=== PATIENT | female | born 1965 | race Two or more races ===

== ENCOUNTER 2020-12-21 12:39 | Inpatient (IN) | payer MEDICAID, OTHER ==
[~2020-12-21] VITALS: Ht 154.9 cm; Wt 117.0 kg
--- NOTE | 2020-12-21 13:10 | NUR ---
PATIENT WHEELED BACK FROM TRIAGE WITH CHIEF C/O "I'VE BEEN DRINKING A LITTLE TOO MUCH." PER PATIENT SHE HAS BEEN DRINKING "2 CANS OF BUDLIGHT FOR A FEW DAYS." UPON ASSESSMENT PATIENT IS JAUNDICED, ACCOMPANIED BY DAUGHTER, POORNIMA, SWELLING IN ABD, VSS, SIDE RAILS UP X2, CALL LIGHT WITHIN REACH.
[2020-12-21] MEDS ORDERED: SODIUM CHLORIDE FLUSH 10ML SYR IVF ONE (13:30)
--- NOTE | 2020-12-21 13:41 | NUR ---
20 GAUGE IV STARTED RIGHT AC, BLOOD COLLECTED AND GIVEN TO [employer] CONSULTANT.
[2020-12-21 13:59] LABS: MEAN CORPUSCULAR HEMOGLOBIN 32.9 pg (27.0-34.8); MEAN CORPUSCULAR HGB CONC 34.8 g/dL (32.4-35.8); MEAN PLATELET VOLUME 7.8 fL (7.4-10.4); PLATELET COUNT 111 x10^3/uL (130-400); RED BLOOD COUNT 3.89 x10^6/uL (3.82-5.3)
[2020-12-21 14:02] LABS: ALANINE AMINOTRANSFERASE 62 U/L (12-78); ALBUMIN 1.5 g/dL (3.4-5.0); ANION GAP 13 mmol/L (5-15); CALCIUM 7.4 mg/dL (8.5-10.1); CHLORIDE 77 mmol/L (98-107)
[2020-12-21 14:09] LABS: ALKALINE PHOSPHATASE 295 U/L (45-117)
[2020-12-21 14:13] LABS: CREATININE 0.81 mg/dL (0.55-1.02); TOTAL PROTEIN 7.7 g/dL (6.4-8.2)
[2020-12-21 14:19] LABS: BILIRUBIN,TOTAL 24.3 mg/dL (0.2-1.0)
--- NOTE | 2020-12-21 14:20 | NUR ---
CRITICAL SODIUM 107 AND BILIRUBIN 24.3 REPORTED TO MD GUERRA AND PRIMARY RN DOUGLAS.
[2020-12-21 14:22] LABS: MD YES
[2020-12-21 14:26] LABS: BAND#(MANUAL) 2.79 x10^3/uL; BANDS%(MANUAL) 15 % (0-7); LYMPH#(MANUAL) 0.93 x10^3/uL (1-3.4); LYMPHS% (MANUAL) 5 % (22-44); METAMYELOCYTES# (MANUAL) 0.56 x10^3/uL (0-0); METAMYELOCYTES% (MANUAL) 3 % (0-1); MONOS% (MANUAL) 7 % (2-9); MYELOCYTES# (MANUAL) 0.19 x10^3/uL (0-0); MYELOCYTES% (MANUAL) 1 % (0-0); SEG#(MANUAL) 12.83 x10^3/uL (1.8-6.8); SEGS% (MANUAL) 69 % (42-75)
[2020-12-21 14:27] LABS: ANISOCYTOSIS 1+; POLYCHROMASIA 1+
[2020-12-21 14:29] LABS: <PLATELET ESTIMATE> DECREASED; <PLT MORPHOLOGY> NORMAL PLT MORPH
[2020-12-21] MEDS ORDERED: SODIUM CHLORIDE 0.9% 1,000 ML IV ONE (14:30)
--- NOTE | 2020-12-21 14:31 | NUR ---
PATIENT LAYING IN GURNEY, POORNIMA, VSS, DAUGHTER AT BEDSIDE, NS HUNG AT 250 mLS/HR, SIDE RAILS UP X2, CALL LIGHT WITHIN REACH.
--- NOTE | 2020-12-21 14:48 | NUR ---
SM AT BEDSIDE FOR ADMISSION EVALUATION.
--- NOTE | 2020-12-21 14:58 | NUR ---
SPOKE WITH DR. 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
[2020-12-21] MEDS ORDERED: SODIUM CHLORIDE FLUSH 10ML SYR IVF PRN (15:00)
--- NOTE | 2020-12-21 15:00 | NUR ---
REPORT FROM BEBA GRANT. PT READY FOR TRANSPORT, AT BEDSIDE
--- NOTE | 2020-12-21 15:08 | NUR ---
US IN ROOM
[2020-12-21 15:21] LABS: INTERNATIONAL NORMALIZED RATIO 1.74 (0.93-1.1); PROTHROMBIN TIME 18.4 Seconds (9.6-11.5)
[2020-12-21] MEDS ORDERED: POTASSIUM CHLORIDE 20 MEQ TAB.ER.PRT PO ONE (15:30)
[2020-12-21] MEDS ORDERED: OXYcodone IR 5MG TABLET PO PRN (15:30)
[2020-12-21] MEDS ORDERED: PHENOBARBITAL ETOH DETOX PER PHARMACY MC PRN (15:30)
[2020-12-21] MEDS ORDERED: ONDANSETRON 2MG/ML, 2ML IVPush PRN (15:30)
[2020-12-21] MEDS ORDERED: hydrALAzine 20 MG/ML, 1ML IVPush PRN (15:30)
[2020-12-21] MEDS ORDERED: SODIUM CHLORIDE 0.9% IV ONE (16:00)
[2020-12-21] MEDS ORDERED: PHENOBARBITAL SODIUM IV ONE (16:00)
[2020-12-21] MEDS ORDERED: SODIUM CHLORIDE 3% 500 ML IV PRN ×2 (16:00→20:04)
[2020-12-21] MEDS: CEFTRIAXONE PMX 1GM/50ML 50 ML IV SCH (16:17)
[2020-12-21] MEDS ORDERED: HYDR12.517 PO (16:24)
[2020-12-21] MEDS ORDERED: LOSA25TA25 PO (16:24)
[2020-12-21] MEDS ORDERED: LORazepam 0.5MG TABLET PO PRN ×3 (16:30)
[2020-12-21] MEDS ORDERED: DIAZEPAM 10 MG TABLET PO SCH ×2 (16:30)
[2020-12-21] MEDS ORDERED: LORazepam 1MG TABLET PO PRN ×9 (16:30)
[2020-12-21] MEDS ORDERED: LORazepam 2 MG/ML, 1ML IV PRN ×9 (16:30)
[2020-12-21] MEDS ORDERED: DIAZEPAM 5 MG TABLET PO SCH ×2 (16:30)
[2020-12-21] MEDS: POTASSIUM CHLORIDE 20 MEQ, MAGNESIUM SULFATE 1 GM, THIAMINE 200 MG, FOLIC ACID 1 MG in ... IV SCH (16:33)
[2020-12-21] MEDS: METRONIDAZOLE PMX 500MG/100ML 100 ML IV SCH (16:51)
[2020-12-21] MEDS: DIAZEPAM 10 MG TABLET PO SCH (16:53)
[2020-12-21 17:10] VITALS: BP 137/83
[2020-12-21] MEDS ORDERED: POTASSIUM PHOSPHATE 44 MEQ in SODIUM CHLORIDE 0.9% 500 ML IV ONE (17:30)
[2020-12-21 17:51] LABS: MICROSCOPIC INDICATED
[2020-12-21] MEDS: LACTULOSE 20 GM/30 ML UDC PO SCH (20:07)
[2020-12-21] MEDS ORDERED: MELATONIN 5 MG TABLET PO PRN (21:00)
[2020-12-22] MEDS: DIAZEPAM 10 MG TABLET PO SCH ×2 (00:27→03:35)
[2020-12-22] MEDS: METRONIDAZOLE PMX 500MG/100ML 100 ML IV SCH ×3 (01:49→17:31)
[2020-12-22 04:30] LABS: MEAN CORPUSCULAR HEMOGLOBIN 32.8 pg (27.0-34.8); MEAN CORPUSCULAR HGB CONC 35.2 g/dL (32.4-35.8); MEAN PLATELET VOLUME 7.7 fL (7.4-10.4); PLATELET COUNT 91 x10^3/uL (130-400); RED CELL DISTRIBUTION WIDTH 23.5 % (9.6-15.2)
[2020-12-22 04:44] LABS: ALANINE AMINOTRANSFERASE 57 U/L (12-78); ALBUMIN 1.2 g/dL (3.4-5.0); ANION GAP 8 mmol/L (5-15); CALCIUM 6.9 mg/dL (8.5-10.1); CHLORIDE 89 mmol/L (98-107)
[2020-12-22 04:46] LABS: ALKALINE PHOSPHATASE 235 U/L (45-117)
[2020-12-22 04:48] LABS: CREATININE 0.81 mg/dL (0.55-1.02)
[2020-12-22 04:49] LABS: TOTAL PROTEIN 6.5 g/dL (6.4-8.2)
[2020-12-22 04:50] LABS: BILIRUBIN,TOTAL 22.1 mg/dL (0.2-1.0)
[2020-12-22 05:07] LABS: MD YES
[2020-12-22 05:09] LABS: BANDS%(MANUAL) 3 % (0-7); BASOS#(MANUAL) 0.17 x10^3/uL (0-0.1); BASOS% (MANUAL) 1 % (0-1); EOS#(MANUAL) 0.34 x10^3/uL (0.0-0.4); EOS% (MANUAL) 2 % (1-7); LYMPH#(MANUAL) 0.67 x10^3/uL (1-3.4); LYMPHS% (MANUAL) 4 % (22-44); METAMYELOCYTES# (MANUAL) 0.34 x10^3/uL (0-0); METAMYELOCYTES% (MANUAL) 2 % (0-1); MONOS% (MANUAL) 3 % (2-9); MYELOCYTES% (MANUAL) 3 % (0-0); SEG#(MANUAL) 13.78 x10^3/uL (1.8-6.8); SEGS% (MANUAL) 82 % (42-75)
[2020-12-22 05:10] LABS: ANISOCYTOSIS 1+
[2020-12-22 05:11] LABS: <PLATELET ESTIMATE> DECREASED; <PLT MORPHOLOGY> NORMAL PLT MORPH; CRENATED 1+; POLYCHROMASIA 1+
[2020-12-22] MEDS ORDERED: CALCIUM GLUCONATE 9.2 MEQ in SODIUM CHLORIDE 0.9% 100 ML IV ONE (06:30)
[2020-12-22] MEDS ORDERED: PANTOPRAZOLE 40 MG IV IVPush SCH (07:30)
[2020-12-22] MEDS: LACTULOSE 20 GM/30 ML UDC PO SCH ×2 (08:32→20:34)
[2020-12-22] MEDS ORDERED: THIAMINE 200 MG in SODIUM CHLORIDE 0.9% 50 ML IV SCH (09:00)
[2020-12-22] MEDS: PHYTONADIONE 5 MG TABLET PO SCH (11:17)
[2020-12-22] MEDS: CEFTRIAXONE PMX 1GM/50ML 50 ML IV SCH (15:31)
[2020-12-22] MEDS ORDERED: SODIUM CHLORIDE 3% 500 ML IV PRN (17:00)
[2020-12-22] MEDS ORDERED: DIAZEPAM 5 MG TABLET PO SCH (17:00)
[2020-12-22] MEDS: POTASSIUM CHLORIDE 20 MEQ, MAGNESIUM SULFATE 1 GM, THIAMINE 200 MG, FOLIC ACID 1 MG in ... IV SCH (17:27)
[2020-12-23] MEDS: METRONIDAZOLE PMX 500MG/100ML 100 ML IV SCH ×3 (02:00→19:12)
[2020-12-23 05:30] LABS: MEAN CORPUSCULAR HEMOGLOBIN 32.6 pg (27.0-34.8); MEAN CORPUSCULAR HGB CONC 34.3 g/dL (32.4-35.8); MEAN PLATELET VOLUME 7.8 fL (7.4-10.4); PLATELET COUNT 126 x10^3/uL (130-400); RED BLOOD COUNT 3.54 x10^6/uL (3.82-5.3); RED CELL DISTRIBUTION WIDTH 23.6 % (9.6-15.2)
[2020-12-23] MEDS: PANTOPRAZOLE 40MG TABLET PO SCH (05:32)
[2020-12-23 05:39] LABS: ALBUMIN 1.3 g/dL (3.4-5.0); ANION GAP 8 mmol/L (5-15); CALCIUM 7.6 mg/dL (8.5-10.1); CHLORIDE 100 mmol/L (98-107); INTERNATIONAL NORMALIZED RATIO 1.88 (0.93-1.1); PROTHROMBIN TIME 19.9 Seconds (9.6-11.5)
[2020-12-23 05:42] LABS: ALANINE AMINOTRANSFERASE 63 U/L (12-78); ALKALINE PHOSPHATASE 249 U/L (45-117)
[2020-12-23 05:44] LABS: CREATININE 0.99 mg/dL (0.55-1.02); TOTAL PROTEIN 6.5 g/dL (6.4-8.2)
[2020-12-23 05:47] LABS: BILIRUBIN,TOTAL 22.4 mg/dL (0.2-1.0)
[2020-12-23] MEDS ORDERED: POTASSIUM PHOSPHATE 22 MEQ in SODIUM CHLORIDE 0.9% 500 ML IV ONE (06:30)
[2020-12-23 06:46] LABS: MD YES
[2020-12-23 06:48] LABS: ANISOCYTOSIS 1+; BAND#(MANUAL) 0.71 x10^3/uL; BANDS%(MANUAL) 3 % (0-7); LYMPH#(MANUAL) 0.24 x10^3/uL (1-3.4); LYMPHS% (MANUAL) 1 % (22-44); METAMYELOCYTES# (MANUAL) 0.47 x10^3/uL (0-0); METAMYELOCYTES% (MANUAL) 2 % (0-1); MONOS#(MANUAL) 0.47 x10^3/uL (0.3-2.7); MONOS% (MANUAL) 2 % (2-9); MYELOCYTES# (MANUAL) 0.24 x10^3/uL (0-0); MYELOCYTES% (MANUAL) 1 % (0-0); POLYCHROMASIA 1+; SEG#(MANUAL) 21.48 x10^3/uL (1.8-6.8); SEGS% (MANUAL) 91 % (42-75); TARGET CELLS 1+
[2020-12-23 06:49] LABS: <PLATELET ESTIMATE> DECREASED; <PLT MORPHOLOGY> NORMAL PLT MORPH
[2020-12-23] MEDS: PHYTONADIONE 5 MG TABLET PO SCH (08:14)
[2020-12-23] MEDS: THIAMINE 100MG TABLET PO SCH (08:14)
[2020-12-23] MEDS: LACTULOSE 20 GM/30 ML UDC PO SCH ×2 (08:14→20:52)
[2020-12-23] MEDS ORDERED: ALBUTEROL HFA 90 MCG/SPRAY INH PRN (09:00)
[2020-12-23] MEDS ORDERED: FUROSEMIDE 40 MG/4 ML IV ONE (09:00)
[2020-12-23] MEDS ORDERED: POTASSIUM CHLORIDE 20 MEQ TAB.ER.PRT PO ONE ×2 (09:00→15:30)
[2020-12-23 15:22] LABS: ANION GAP 9 mmol/L (5-15); CALCIUM 6.9 mg/dL (8.5-10.1); CHLORIDE 102 mmol/L (98-107)
[2020-12-23] MEDS ORDERED: CALCIUM GLUCONATE 9.2 MEQ in SODIUM CHLORIDE 0.9% 100 ML IV ONE (15:30)
[2020-12-23] MEDS: CEFTRIAXONE PMX 1GM/50ML 50 ML IV SCH (16:36)
[2020-12-23 18:36] VITALS: BP 121/75
[2020-12-24 00:37] VITALS: BP 130/79
[2020-12-24] MEDS: METRONIDAZOLE PMX 500MG/100ML 100 ML IV SCH (03:41)
[2020-12-24 05:07] LABS: MEAN CORPUSCULAR HEMOGLOBIN 33.4 pg (27.0-34.8); MEAN CORPUSCULAR HGB CONC 34.5 g/dL (32.4-35.8); MEAN PLATELET VOLUME 7.2 fL (7.4-10.4); PLATELET COUNT 115 x10^3/uL (130-400); RED BLOOD COUNT 3.42 x10^6/uL (3.82-5.3); RED CELL DISTRIBUTION WIDTH 24.5 % (9.6-15.2)
[2020-12-24 05:17] LABS: ALBUMIN 1.4 g/dL (3.4-5.0); ANION GAP 7 mmol/L (5-15); CALCIUM 7.6 mg/dL (8.5-10.1); CHLORIDE 104 mmol/L (98-107)
[2020-12-24 05:21] LABS: ALANINE AMINOTRANSFERASE 75 U/L (12-78); ALKALINE PHOSPHATASE 252 U/L (45-117)
[2020-12-24 05:24] LABS: BILIRUBIN,TOTAL 22.4 mg/dL (0.2-1.0); TOTAL PROTEIN 6.3 g/dL (6.4-8.2)
[2020-12-24 06:09] LABS: MD YES
[2020-12-24 06:12] LABS: <PLATELET ESTIMATE> DECREASED; <PLT MORPHOLOGY> NORMAL PLT MORPH; ANISOCYTOSIS 1+; BANDS%(MANUAL) 6 % (0-7); LYMPHS% (MANUAL) 1 % (22-44); METAMYELOCYTES% (MANUAL) 1 % (0-1); MONOS% (MANUAL) 2 % (2-9); MYELOCYTES% (MANUAL) 2 % (0-0); POLYCHROMASIA 1+; SEGS% (MANUAL) 88 % (42-75); TARGET CELLS 1+
[2020-12-24] MEDS: PANTOPRAZOLE 40MG TABLET PO SCH (06:17)
[2020-12-24 07:41] VITALS: BP 111/73
[2020-12-24] MEDS ORDERED: FUROSEMIDE 40 MG/4 ML IV ONE (08:00)
[2020-12-24] MEDS ORDERED: POTASSIUM CHLORIDE 20 MEQ TAB.ER.PRT PO ONE (08:00)
[2020-12-24] MEDS: LACTULOSE 20 GM/30 ML UDC PO SCH ×2 (08:11→20:32)
[2020-12-24] MEDS: THIAMINE 100MG TABLET PO SCH (08:11)
[2020-12-24] MEDS: PHYTONADIONE 5 MG TABLET PO SCH (08:11)
[2020-12-24 13:45] VITALS: BP 122/76
[2020-12-24] MEDS: CEFTRIAXONE PMX 1GM/50ML 50 ML IV SCH (15:26)
[2020-12-24 20:00] VITALS: BP 118/76
[2020-12-25 02:00] VITALS: BP 114/71
[2020-12-25 04:53] LABS: MEAN CORPUSCULAR HEMOGLOBIN 33.2 pg (27.0-34.8); MEAN CORPUSCULAR HGB CONC 34.8 g/dL (32.4-35.8); MEAN PLATELET VOLUME 7.4 fL (7.4-10.4); PLATELET COUNT 106 x10^3/uL (130-400); RED BLOOD COUNT 3.37 x10^6/uL (3.82-5.3); RED CELL DISTRIBUTION WIDTH 23.9 % (9.6-15.2)
[2020-12-25 05:04] LABS: ALANINE AMINOTRANSFERASE 87 U/L (12-78); ALBUMIN 1.3 g/dL (3.4-5.0); ANION GAP 9 mmol/L (5-15); CALCIUM 7.4 mg/dL (8.5-10.1); CHLORIDE 106 mmol/L (98-107)
[2020-12-25 05:06] LABS: ALKALINE PHOSPHATASE 235 U/L (45-117)
[2020-12-25 05:07] LABS: CREATININE 1.31 mg/dL (0.55-1.02)
[2020-12-25 05:09] LABS: BILIRUBIN,TOTAL 21.7 mg/dL (0.2-1.0)
[2020-12-25 05:47] LABS: MD YES
[2020-12-25 05:48] LABS: <PLATELET ESTIMATE> DECREASED; <PLT MORPHOLOGY> NORMAL PLT MORPH; ANISOCYTOSIS 1+; BAND#(MANUAL) 0.35 x10^3/uL; BANDS%(MANUAL) 2 % (0-7); LYMPH#(MANUAL) 0.35 x10^3/uL (1-3.4); LYMPHS% (MANUAL) 2 % (22-44); MONOS#(MANUAL) 1.06 x10^3/uL (0.3-2.7); MONOS% (MANUAL) 6 % (2-9); MYELOCYTES# (MANUAL) 0.18 x10^3/uL (0-0); MYELOCYTES% (MANUAL) 1 % (0-0); POLYCHROMASIA 1+; SEG#(MANUAL) 15.75 x10^3/uL (1.8-6.8); SEGS% (MANUAL) 89 % (42-75)
[2020-12-25] MEDS: PANTOPRAZOLE 40MG TABLET PO SCH (05:51)
[2020-12-25 06:52] VITALS: BP 101/65
[2020-12-25] MEDS: POTASSIUM CHLORIDE 20 MEQ TAB.ER.PRT PO SCH ×2 (07:23→16:33)
[2020-12-25] MEDS: PHYTONADIONE 5 MG TABLET PO SCH (07:23)
[2020-12-25] MEDS: LACTULOSE 20 GM/30 ML UDC PO SCH ×2 (07:23→20:21)
[2020-12-25] MEDS: THIAMINE 100MG TABLET PO SCH (07:23)
[2020-12-25 13:21] VITALS: BP 110/73
[2020-12-25] MEDS: CEFTRIAXONE PMX 1GM/50ML 50 ML IV SCH (16:33)
[2020-12-25 19:00] VITALS: BP 125/80
[2020-12-26 01:46] VITALS: BP 110/72
[2020-12-26 05:01] LABS: INTERNATIONAL NORMALIZED RATIO 1.57 (0.93-1.1); PROTHROMBIN TIME 16.6 Seconds (9.6-11.5)
[2020-12-26 05:07] LABS: CHLORIDE 108 mmol/L (98-107)
[2020-12-26 05:17] LABS: ALANINE AMINOTRANSFERASE 107 U/L (12-78); ALBUMIN 1.4 g/dL (3.4-5.0); ALKALINE PHOSPHATASE 235 U/L (45-117); ANION GAP 6 mmol/L (5-15)
[2020-12-26 05:29] LABS: CREATININE 1.32 mg/dL (0.55-1.02); TOTAL PROTEIN 6.2 g/dL (6.4-8.2)
[2020-12-26 05:31] VITALS: BP 132/71
[2020-12-26 05:33] LABS: BILIRUBIN,TOTAL 22.9 mg/dL (0.2-1.0)
[2020-12-26] MEDS: PANTOPRAZOLE 40MG TABLET PO SCH (05:42)
[2020-12-26 06:25] VITALS: BP 123/85
[2020-12-26] MEDS: LACTULOSE 20 GM/30 ML UDC PO SCH ×2 (07:37→20:11)
[2020-12-26] MEDS: THIAMINE 100MG TABLET PO SCH (07:38)
[2020-12-26] MEDS: PHYTONADIONE 5 MG TABLET PO SCH (07:38)
[2020-12-26] MEDS: POTASSIUM CHLORIDE 20 MEQ TAB.ER.PRT PO SCH (07:38)
[2020-12-26 12:15] VITALS: BP 127/84
[2020-12-26] MEDS: CEFTRIAXONE PMX 1GM/50ML 50 ML IV SCH (16:20)
[2020-12-26 19:56] VITALS: BP 120/74
[2020-12-27 01:17] VITALS: BP 124/76
[2020-12-27 04:35] LABS: MEAN CORPUSCULAR HEMOGLOBIN 33.4 pg (27.0-34.8); MEAN CORPUSCULAR HGB CONC 34.1 g/dL (32.4-35.8); MEAN PLATELET VOLUME 7.6 fL (7.4-10.4); PLATELET COUNT 110 x10^3/uL (130-400); RED BLOOD COUNT 3.27 x10^6/uL (3.82-5.3); RED CELL DISTRIBUTION WIDTH 24.5 % (9.6-15.2)
[2020-12-27 04:43] LABS: INTERNATIONAL NORMALIZED RATIO 1.57 (0.93-1.1); PROTHROMBIN TIME 16.7 Seconds (9.6-11.5)
[2020-12-27 04:46] LABS: ALANINE AMINOTRANSFERASE 124 U/L (12-78); ALBUMIN 1.4 g/dL (3.4-5.0); ANION GAP 3 mmol/L (5-15); CALCIUM 7.9 mg/dL (8.5-10.1); CHLORIDE 111 mmol/L (98-107)
[2020-12-27 04:48] LABS: ALKALINE PHOSPHATASE 240 U/L (45-117); CREATININE 1.32 mg/dL (0.55-1.02)
[2020-12-27 04:49] LABS: TOTAL PROTEIN 5.9 g/dL (6.4-8.2)
[2020-12-27 04:50] LABS: BILIRUBIN,TOTAL 22.2 mg/dL (0.2-1.0)
[2020-12-27 05:20] LABS: MD YES
[2020-12-27 05:22] LABS: ANISOCYTOSIS 1+; BAND#(MANUAL) 0.84 x10^3/uL; BANDS%(MANUAL) 4 % (0-7); LYMPH#(MANUAL) 0.63 x10^3/uL (1-3.4); LYMPHS% (MANUAL) 3 % (22-44); MONOS#(MANUAL) 0.42 x10^3/uL (0.3-2.7); MONOS% (MANUAL) 2 % (2-9); SEGS% (MANUAL) 91 % (42-75)
[2020-12-27 05:23] LABS: <PLATELET ESTIMATE> DECREASED; <PLT MORPHOLOGY> NORMAL PLT MORPH; POLYCHROMASIA 1+; TARGET CELLS 1+; TEAR DROPS 1+
[2020-12-27] MEDS: PANTOPRAZOLE 40MG TABLET PO SCH (05:45)
[2020-12-27 07:06] VITALS: BP 121/70
[2020-12-27] MEDS: THIAMINE 100MG TABLET PO SCH (08:12)
[2020-12-27] MEDS: LACTULOSE 20 GM/30 ML UDC PO SCH ×2 (08:12→20:18)
[2020-12-27] MEDS: PHYTONADIONE 5 MG TABLET PO SCH (08:12)
[2020-12-27 13:20] VITALS: BP 114/76
[2020-12-27] MEDS: CEFTRIAXONE PMX 1GM/50ML 50 ML IV SCH (15:58)
[2020-12-27 20:00] VITALS: BP 109/69
[2020-12-28 01:35] VITALS: BP 113/72
[2020-12-28 05:45] LABS: BASOPHILS % (AUTO) 0 % (0-1); EOSINOPHILS % (AUTO) 0 % (1-7); LYMPHOCYTES % (AUTO) 4 % (22-44); MEAN CORPUSCULAR HEMOGLOBIN 33.6 pg (27.0-34.8); MEAN CORPUSCULAR HGB CONC 34.1 g/dL (32.4-35.8); MEAN PLATELET VOLUME 7.9 fL (7.4-10.4); MONOCYTES % (AUTO) 5 % (2-9); NEUTROPHILS % (AUTO) 91 % (42-75); PLATELET COUNT 109 x10^3/uL (130-400); RED CELL DISTRIBUTION WIDTH 25.4 % (9.6-15.2)
[2020-12-28 05:51] LABS: INTERNATIONAL NORMALIZED RATIO 1.53 (0.93-1.1); PROTHROMBIN TIME 16.2 Seconds (9.6-11.5)
[2020-12-28 05:55] LABS: ALBUMIN 1.4 g/dL (3.4-5.0); ANION GAP 6 mmol/L (5-15); CALCIUM 8.2 mg/dL (8.5-10.1); CHLORIDE 109 mmol/L (98-107)
[2020-12-28 05:58] LABS: ALANINE AMINOTRANSFERASE 146 U/L (12-78); ALKALINE PHOSPHATASE 240 U/L (45-117)
[2020-12-28] MEDS: PANTOPRAZOLE 40MG TABLET PO SCH (05:59)
[2020-12-28 06:00] LABS: TOTAL PROTEIN 5.8 g/dL (6.4-8.2)
[2020-12-28 06:02] LABS: BILIRUBIN,TOTAL 21.6 mg/dL (0.2-1.0)
[2020-12-28 06:35] LABS: MD SCAN
[2020-12-28 07:08] VITALS: BP 101/68
[2020-12-28] MEDS: PHYTONADIONE 5 MG TABLET PO SCH (07:57)
[2020-12-28] MEDS: THIAMINE 100MG TABLET PO SCH (07:57)
[2020-12-28] MEDS: LACTULOSE 20 GM/30 ML UDC PO SCH ×2 (07:57→20:01)
[2020-12-28 12:59] VITALS: BP 98/64
[2020-12-28] MEDS: CEFTRIAXONE PMX 1GM/50ML 50 ML IV SCH (15:57)
[2020-12-28 18:19] VITALS: BP 105/66
[2020-12-29 00:23] VITALS: BP 105/63
[2020-12-29 04:47] LABS: MEAN CORPUSCULAR HEMOGLOBIN 33.9 pg (27.0-34.8); MEAN CORPUSCULAR HGB CONC 33.9 g/dL (32.4-35.8); MEAN PLATELET VOLUME 7.8 fL (7.4-10.4); PLATELET COUNT 103 x10^3/uL (130-400); RED BLOOD COUNT 3.23 x10^6/uL (3.82-5.3); RED CELL DISTRIBUTION WIDTH 25.5 % (9.6-15.2)
[2020-12-29 04:59] LABS: ALANINE AMINOTRANSFERASE 170 U/L (12-78); ALBUMIN 1.3 g/dL (3.4-5.0); ANION GAP 8 mmol/L (5-15); CALCIUM 7.7 mg/dL (8.5-10.1); CHLORIDE 109 mmol/L (98-107); INTERNATIONAL NORMALIZED RATIO 1.52 (0.93-1.1); PROTHROMBIN TIME 16.1 Seconds (9.6-11.5)
[2020-12-29 05:02] LABS: ALKALINE PHOSPHATASE 232 U/L (45-117)
[2020-12-29 05:05] LABS: CREATININE 1.51 mg/dL (0.55-1.02); TOTAL PROTEIN 5.5 g/dL (6.4-8.2)
[2020-12-29 05:06] LABS: BILIRUBIN,TOTAL 21.9 mg/dL (0.2-1.0)
[2020-12-29] MEDS: PANTOPRAZOLE 40MG TABLET PO SCH (05:37)
[2020-12-29 05:45] LABS: MD YES
[2020-12-29 05:50] LABS: <PLATELET ESTIMATE> DECREASED; <PLT MORPHOLOGY> NORMAL PLT MORPH; ANISOCYTOSIS 1+; BAND#(MANUAL) 0.65 x10^3/uL; BANDS%(MANUAL) 3 % (0-7); EOS#(MANUAL) 0.44 x10^3/uL (0.0-0.4); EOS% (MANUAL) 2 % (1-7); METAMYELOCYTES# (MANUAL) 0.44 x10^3/uL (0-0); METAMYELOCYTES% (MANUAL) 2 % (0-1); MONOS#(MANUAL) 0.44 x10^3/uL (0.3-2.7); MONOS% (MANUAL) 2 % (2-9); MYELOCYTES# (MANUAL) 0.22 x10^3/uL (0-0); MYELOCYTES% (MANUAL) 1 % (0-0); POLYCHROMASIA 1+; SEG#(MANUAL) 19.62 x10^3/uL (1.8-6.8); SEGS% (MANUAL) 90 % (42-75); TARGET CELLS 1+
[2020-12-29 07:44] VITALS: BP 100/66
[2020-12-29] MEDS: LACTULOSE 20 GM/30 ML UDC PO SCH ×2 (09:18→20:30)
[2020-12-29] MEDS: THIAMINE 100MG TABLET PO SCH (09:18)
[2020-12-29] MEDS: PHYTONADIONE 5 MG TABLET PO SCH (09:18)
[2020-12-29 12:19] VITALS: BP 95/62
[2020-12-29] MEDS: CEFTRIAXONE PMX 1GM/50ML 50 ML IV SCH (16:31)
[2020-12-29 18:20] VITALS: BP 107/67
[2020-12-29 23:56] VITALS: BP 96/63
[2020-12-30] MEDS: PANTOPRAZOLE 40MG TABLET PO SCH (05:48)
[2020-12-30 07:10] VITALS: BP 89/57
[2020-12-30] MEDS: LACTULOSE 20 GM/30 ML UDC PO SCH (09:24)
[2020-12-30] MEDS: PHYTONADIONE 5 MG TABLET PO SCH (09:24)
[2020-12-30] MEDS: THIAMINE 100MG TABLET PO SCH (09:25)
[2020-12-30 12:45] VITALS: BP 85/59
[2020-12-30] MEDS ORDERED: ALBU18HF INH (13:29)
[2020-12-30] MEDS ORDERED: THIA100T67 PO (13:29)
[2020-12-30] MEDS ORDERED: PANT40TA6 PO (13:29)
[2020-12-30] MEDS ORDERED: LACT20SO13 PO (13:29)
[2020-12-30] MEDS ORDERED: POTA20PA25 PO (13:29)
[2020-12-30] MEDS ORDERED: FURO-92 PO (13:29)
[2020-12-30] MEDS ORDERED: FUROSEMIDE 20 MG/2 ML IV ONE (13:30)
[2020-12-30] MEDS ORDERED: LEVO750T6 PO (13:35)
[2020-12-30] MEDS: CEFTRIAXONE PMX 1GM/50ML 50 ML IV SCH (15:55)
== END 2020-12-30 16:50 | disposition home or self-care (01) | DRG 280 ==
LOC: ED 14:30 → EDIP 14:34 → CCU 15:36 → 3N 12-23 15:14
PROVIDERS: ADMIT Hospitalist; ATTEND Internal Medicine
DX: K70.11 Alcoholic hepatitis with ascites (principal); B96.20 Unspecified Escherichia coli [E. coli] as the cause of diseases classified elsewhere; D64.9 Anemia, unspecified; D68.9 Coagulation defect, unspecified; D69.59 Other secondary thrombocytopenia; A41.9 Sepsis, unspecified organism; E66.01 Morbid (severe) obesity due to excess calories; E87.1 Hypo-osmolality and hyponatremia; E87.2 Acidosis; E88.09 Other disorders of plasma-protein metabolism, not elsewhere classified; F10.20 Alcohol dependence, uncomplicated; G47.33 Obstructive sleep apnea (adult) (pediatric); I12.9 Hypertensive chronic kidney disease with stage 1 through stage 4 chronic kidney disease, or unspecified chronic kidney disease; J45.909 Unspecified asthma, uncomplicated; K76.0 Fatty (change of) liver, not elsewhere classified; K76.6 Portal hypertension; K80.20 Calculus of gallbladder without cholecystitis without obstruction; Y90.9 Presence of alcohol in blood, level not specified; K85.90 Acute pancreatitis without necrosis or infection, unspecified; N12 Tubulo-interstitial nephritis, not specified as acute or chronic; N18.30 Chronic kidney disease, stage 3 unspecified; Z83.3 Family history of diabetes mellitus; Z68.42 Body mass index [BMI] 45.0-49.9, adult
CPT/HCPCS: 36415; 74176; 76700; 80048; 80053; 80074; 80320; 81001; 82140; 82784; 82787; 83516; 83605; 83690; 83735; 83930; 83935; 84100; 84145; 84295; 84443; 85025; 85610; 86704; 87040; 87077; 87081; 87086; 87186; 93306; 96365; 99291; G0378; J0610; J0696; J1940; J3411; J3475; J3480; J7509; C9113; G0480; J7030; J7040

== ENCOUNTER 2021-01-02 15:19 | Inpatient (IN) | payer MEDICAID ==
[~2021-01-02] VITALS: Ht 154.9 cm; Wt 128.0 kg
[~2021-01-02 15:19] MED LIST: ALBU18HF INH; FURO-92 PO; HYDR12.517 PO; LACT20SO13 PO; LEVO750T6 PO; LOSA25TA25 PO; PANT40TA6 PO; POTA20PA25 PO; THIA100T67 PO
--- NOTE | 2021-01-02 15:31 | NUR ---
PT BIB [facility]. PT APPEARING LETHARGIC AND DAUGHTER CALLED 911. BP UPON EMS ARRIVAL 50/30. 1L NS GIVEN PRE [facility]. PT STATES THAT SHE HAS BEEN TAKING LASIX AT HOME AND HAS NOT BEEN DRINKING WATER. MD MARIA AT BEDSIDE
[2021-01-02 15:58] LABS: MEAN CORPUSCULAR HGB CONC 33.6 g/dL (32.4-35.8); MEAN PLATELET VOLUME 9.2 fL (7.4-10.4); PLATELET COUNT 86 x10^3/uL (130-400); RED BLOOD COUNT 2.77 x10^6/uL (3.82-5.3); RED CELL DISTRIBUTION WIDTH 26.1 % (9.6-15.2)
[2021-01-02 15:59] LABS: INTERNATIONAL NORMALIZED RATIO 1.82 (0.93-1.1); PROTHROMBIN TIME 19.2 Seconds (9.6-11.5)
[2021-01-02] MEDS ORDERED: SODIUM CHLORIDE 0.9% 1,000ML IVBOLUS ONE ×2 (16:00→16:30)
[2021-01-02] MEDS ORDERED: SODIUM CHLORIDE FLUSH 10ML SYR IVF ONE (16:00)
[2021-01-02 16:01] LABS: ALBUMIN 1.1 g/dL (3.4-5.0); CALCIUM 6.7 mg/dL (8.5-10.1); CHLORIDE 100 mmol/L (98-107)
--- NOTE | 2021-01-02 16:02 | NUR ---
PT STRAIGHT CATHED FOR UA. PT TOLERATED WELL
[2021-01-02 16:09] LABS: ALANINE AMINOTRANSFERASE 191 U/L (12-78); ALKALINE PHOSPHATASE 287 U/L (45-117); ANION GAP 15 mmol/L (5-15)
[2021-01-02 16:12] LABS: MICROSCOPIC INDICATED
[2021-01-02 16:22] LABS: CREATININE 4.87 mg/dL (0.55-1.02)
[2021-01-02 16:23] LABS: TOTAL PROTEIN 4.8 g/dL (6.4-8.2)
[2021-01-02 16:25] LABS: BILIRUBIN,TOTAL 21.5 mg/dL (0.2-1.0)
[2021-01-02 16:43] LABS: MD YES
[2021-01-02 16:45] LABS: BANDS%(MANUAL) 23 % (0-7); EOS#(MANUAL) 0.23 x10^3/uL (0.0-0.4); EOS% (MANUAL) 1 % (1-7); LYMPH#(MANUAL) 0.45 x10^3/uL (1-3.4); LYMPHS% (MANUAL) 2 % (22-44); METAMYELOCYTES# (MANUAL) 0.23 x10^3/uL (0-0); METAMYELOCYTES% (MANUAL) 1 % (0-1); SEGS% (MANUAL) 73 % (42-75)
[2021-01-02 16:46] LABS: ANISOCYTOSIS 1+
[2021-01-02 16:47] LABS: TARGET CELLS 1+
[2021-01-02 16:48] LABS: <PLATELET ESTIMATE> DECREASED; <PLT MORPHOLOGY> NORMAL PLT MORPH
--- NOTE | 2021-01-02 16:49 | NUR ---
PT RESTING COMFORTABLY. DAUGHTER AT BEDSIDE.
[2021-01-02] MEDS ORDERED: PIPERACILLIN/TAZO/PMX 2.25GM 50 ML IVPB ONE (17:00)
[2021-01-02] MEDS ORDERED: SODIUM BICARBONATE 650 MG TABLET PO ONE (18:00)
[2021-01-02] MEDS ORDERED: ALBUMIN HUMAN 25% 100 ML IV ONE (18:00)
[2021-01-02] MEDS: NOREPINEPHRINE 8 MG in SODIUM CHLORIDE 0.9% 242 ML IV PRN ×2 (18:07→23:39)
--- NOTE | 2021-01-02 18:07 | NUR ---
Report from Emerita GRANT Levophed started peripherally after clarification with erp as 70/palp
--- NOTE | 2021-01-02 18:27 | NUR ---
b/p improved to 110/35. Erp made aware. Central line setup complete Senior Electrical Project Manager questioned safety of po midodrine/bicarb as patient quite obtunded-erp reports nephro specifically wants po. will swallow eval then attempt
--- NOTE | 2021-01-02 18:54 | NUR ---
bedside report from june deal. dr womack just finished central line. xray at bedside for placement verification.
--- NOTE | 2021-01-02 18:56 | NUR ---
cxr at bedside. erp confirmed cl placement. levo moved to cl and titrated up to 0.3 Report to horacio watkins
[2021-01-02] MEDS: MIDODRINE 5 MG TABLET PO SCH ×2 (18:59→23:18)
--- NOTE | 2021-01-02 19:16 | NUR ---
per er ryan erazo to use central line
--- NOTE | 2021-01-02 19:24 | NUR ---
pt A+Ox4 and denying any pain at this time
--- NOTE | 2021-01-02 19:30 | NUR ---
pt able to tolerate po medications well
--- NOTE | 2021-01-02 20:00 | NUR ---
dr madden at bedside for assessment
--- NOTE | 2021-01-02 20:50 | NUR ---
pt resting comfortably. no acute distress. daughter at bedside.
[2021-01-02] MEDS ORDERED: OXYcodone IR 5MG TABLET PO PRN (21:00)
[2021-01-02] MEDS ORDERED: ONDANSETRON 2MG/ML, 2ML IVPush PRN (21:00)
[2021-01-02] MEDS ORDERED: PROMETHAZINE 25 MG/ML, 1ML IM PRN (21:00)
[2021-01-02] MEDS: LACTULOSE 10 GM/15 ML UDC PO SCH (21:00)
[2021-01-02] MEDS ORDERED: SODIUM BICARBONATE 8.4% 150 MEQ in DEXTROSE 5% 1,000 ML IV SCH (21:00)
[2021-01-02] MEDS ORDERED: ONDANSETRON ODT 4 MG PO PRN (21:00)
[2021-01-02] MEDS ORDERED: ALBUTEROL HFA 90 MCG/SPRAY INH PRN (21:30)
--- NOTE | 2021-01-02 22:07 | NUR ---
report to june tamayo
[2021-01-02] MEDS: CEFTRIAXONE PMX 2GM/50ML 50 ML IVPB SCH (23:39)
[2021-01-03] VITALS (8 sets, daily range): BP systolic 101–123; BP diastolic 38–63
[2021-01-03] MEDS ORDERED: NOREPINEPHRINE 32 MG in SODIUM CHLORIDE 0.9% 218 ML IV PRN (01:27)
[2021-01-03] MEDS: METRONIDAZOLE PMX 500MG/100ML 100 ML IV SCH ×4 (01:42→21:31)
[2021-01-03 04:11] LABS: MEAN PLATELET VOLUME 8.7 fL (7.4-10.4); PLATELET COUNT 106 x10^3/uL (130-400); RED BLOOD COUNT 2.78 x10^6/uL (3.82-5.3); RED CELL DISTRIBUTION WIDTH 25.9 % (9.6-15.2)
[2021-01-03 04:23] LABS: ALBUMIN 1.6 g/dL (3.4-5.0); ANION GAP 16 mmol/L (5-15); CALCIUM 6.6 mg/dL (8.5-10.1); CHLORIDE 100 mmol/L (98-107)
[2021-01-03 04:32] LABS: ALANINE AMINOTRANSFERASE 199 U/L (12-78); ALKALINE PHOSPHATASE 296 U/L (45-117); HDL CHOLESTEROL (DIRECT) 14 mg/dL (40-60)
[2021-01-03 04:35] LABS: CHOL/HDL RATIO 3.6; CHOLESTEROL, TOTAL < 50 mg/dL (140-239); CREATININE 5.14 mg/dL (0.55-1.02); HDL CHOL % 0 % (28-40); TOTAL PROTEIN 5.1 g/dL (6.4-8.2); TRIGLYCERIDES 203 mg/dL (50-200); VLDL CHOLESTEROL 41 mg/dL (0-25)
[2021-01-03 04:36] LABS: LDL CHOLESTEROL,CALCULATED < 5 mg/dL (54-169)
[2021-01-03 04:46] LABS: MD YES
[2021-01-03 04:48] LABS: ANISOCYTOSIS 1+; BAND#(MANUAL) 3.34 x10^3/uL; BANDS%(MANUAL) 12 % (0-7); LYMPH#(MANUAL) 0.28 x10^3/uL (1-3.4); LYMPHS% (MANUAL) 1 % (22-44); MONOS#(MANUAL) 1.95 x10^3/uL (0.3-2.7); MONOS% (MANUAL) 7 % (2-9); SEG#(MANUAL) 22.24 x10^3/uL (1.8-6.8); SEGS% (MANUAL) 80 % (42-75); TARGET CELLS 1+
[2021-01-03 04:49] LABS: <PLATELET ESTIMATE> DECREASED; <PLT MORPHOLOGY> NORMAL PLT MORPH
[2021-01-03] MEDS: PANTOPRAZOLE 40MG TABLET PO SCH (05:29)
[2021-01-03] MEDS ORDERED: MICROFIBRILLAR COLLAGEN 1 GM TP ONE (07:00)
[2021-01-03] MEDS ORDERED: MICROFIBRILLAR COLLAGEN 0.5GM/PACK TP ONE (07:00)
[2021-01-03] MEDS: ALBUMIN HUMAN 25% 100 ML IV SCH ×3 (08:10→23:51)
[2021-01-03] MEDS: PHYTONADIONE 10 MG/ML, 1ML SQ SCH (08:55)
[2021-01-03] MEDS: LACTULOSE 10 GM/15 ML UDC PO SCH ×2 (09:00→21:31)
[2021-01-03] MEDS: THIAMINE 100MG TABLET PO SCH (09:07)
[2021-01-03] MEDS: MIDODRINE 5 MG TABLET PO SCH ×3 (09:08→21:31)
[2021-01-03 10:17] LABS: ABSOLUTE RETICS # 0.103 x10^6/uL (0.5-2.5); RED BLOOD COUNT 2.56 x10^6/uL (3.82-5.3); RETICULOCYTE COUNT % 4.01 % (0.5-1.5)
[2021-01-03] MEDS ORDERED: LIDOCAINE 1%, 10ML ONE ×2 (10:20→11:20)
[2021-01-03 10:37] LABS: CALCIUM 6.7 mg/dL (8.5-10.1)
[2021-01-03] MEDS ORDERED: HEPARIN 5,000 UNITS/ML, 1ML ONE (11:10)
[2021-01-03] MEDS ORDERED: NOREPINEPHRINE 8 MG in SODIUM CHLORIDE 0.9% 242 ML IV PRN (15:00)
[2021-01-03] MEDS: NOREPINEPHRINE 32 MG in SODIUM CHLORIDE 0.9% 218 ML IV PRN (18:03)
[2021-01-03 18:53] LABS: POTASSIUM,URINE RANDOM 43 mmol/L
[2021-01-03 18:56] LABS: CREATININE,URINE RANDOM 61.2 mg/dL
[2021-01-03 19:07] LABS: CHLORIDE,URINE RANDOM < 10 mmol/L; SODIUM,URINE RANDOM < 5 mmol/L
[2021-01-03] MEDS: CEFTRIAXONE PMX 2GM/50ML 50 ML IVPB SCH (22:27)
[2021-01-04] VITALS (21 sets, daily range): BP systolic 92–148; BP diastolic 28–60
[2021-01-04] MEDS: NOREPINEPHRINE 32 MG in SODIUM CHLORIDE 0.9% 218 ML IV PRN ×3 (02:14→21:46)
[2021-01-04 05:14] LABS: MEAN CORPUSCULAR HEMOGLOBIN 35.9 pg (27.0-34.8); MEAN CORPUSCULAR HGB CONC 35.1 g/dL (32.4-35.8); MEAN PLATELET VOLUME 8.7 fL (7.4-10.4); PLATELET COUNT 59 x10^3/uL (130-400); RED BLOOD COUNT 1.58 x10^6/uL (3.82-5.3); RED CELL DISTRIBUTION WIDTH 26.1 % (9.6-15.2)
[2021-01-04 05:19] LABS: ALANINE AMINOTRANSFERASE 175 U/L (12-78); ALBUMIN 2.5 g/dL (3.4-5.0); ANION GAP 15 mmol/L (5-15); CALCIUM 6.8 mg/dL (8.5-10.1); CHLORIDE 98 mmol/L (98-107)
[2021-01-04 05:20] LABS: CREATININE 4.77 mg/dL (0.55-1.02)
[2021-01-04] MEDS: ALBUMIN HUMAN 25% 100 ML IV SCH ×4 (05:23→21:45)
[2021-01-04 05:34] LABS: ALKALINE PHOSPHATASE 179 U/L (45-117)
[2021-01-04 05:37] LABS: TOTAL PROTEIN 4.5 g/dL (6.4-8.2)
[2021-01-04 05:38] LABS: BILIRUBIN,TOTAL 23.4 mg/dL (0.2-1.0)
[2021-01-04 06:12] LABS: MD YES
[2021-01-04 06:13] LABS: BANDS%(MANUAL) 6 % (0-7); EOS#(MANUAL) 0.37 x10^3/uL (0.0-0.4); EOS% (MANUAL) 2 % (1-7); LYMPH#(MANUAL) 0.37 x10^3/uL (1-3.4); LYMPHS% (MANUAL) 2 % (22-44); MONOS#(MANUAL) 0.92 x10^3/uL (0.3-2.7); MONOS% (MANUAL) 5 % (2-9); MYELOCYTES# (MANUAL) 0.18 x10^3/uL (0-0); MYELOCYTES% (MANUAL) 1 % (0-0); SEG#(MANUAL) 15.46 x10^3/uL (1.8-6.8); SEGS% (MANUAL) 84 % (42-75)
[2021-01-04 06:14] LABS: ANISOCYTOSIS 1+; OVALOCYTES 1+
[2021-01-04 06:15] LABS: <PLATELET ESTIMATE> DECREASED; <PLT MORPHOLOGY> NORMAL PLT MORPH; ECHINOCYTES 1+; SCHISTOCYTES 1+; TARGET CELLS 1+
[2021-01-04] MEDS: PANTOPRAZOLE 40MG TABLET PO SCH (06:25)
[2021-01-04] MEDS: METRONIDAZOLE PMX 500MG/100ML 100 ML IV SCH ×3 (06:42→20:03)
[2021-01-04] MEDS ORDERED: SODIUM BICARB 8.4%, 50ML SYRINGE IVPush ONE (07:00)
[2021-01-04] MEDS ORDERED: CALCIUM CHLORIDE 27.2 MEQ in SODIUM CHLORIDE 0.9% 100 ML IV ONE (07:00)
[2021-01-04] MEDS ORDERED: SODIUM BICARBONATE 1 MEQ/ML, 50ML VIAL ONE (07:04)
[2021-01-04 07:40] LABS: FIO2 RA %
[2021-01-04 07:54] LABS: D-DIMER (DIC) 2.51 ug/mlFEU (0.00-0.52); PROTIME 25.8 Seconds (9.6-11.5)
[2021-01-04] MEDS: LACTULOSE 10 GM/15 ML UDC PO SCH ×2 (09:00→19:54)
[2021-01-04] MEDS: MIDODRINE 5 MG TABLET PO SCH ×3 (09:59→20:03)
[2021-01-04] MEDS: THIAMINE 100MG TABLET PO SCH (09:59)
[2021-01-04] MEDS: PHYTONADIONE 10 MG/ML, 1ML SQ SCH (09:59)
[2021-01-04] MEDS ORDERED: OCTREOTIDE 50 MCG/ML, 1ML (0.05MG/ML) IVPush ONE (12:30)
[2021-01-04] MEDS ORDERED: MICROFIBRILLAR COLLAGEN 1 GM TP ONE (12:30)
[2021-01-04] MEDS: PANTOPRAZOLE 40 MG IV IVPush SCH (13:09)
[2021-01-04] MEDS: OCTREOTIDE 500 MCG in SODIUM CHLORIDE 0.9% 99 ML IV PRN ×2 (13:44→21:46)
[2021-01-04] MEDS: CEFTRIAXONE PMX 2GM/50ML 50 ML IVPB SCH (20:03)
[2021-01-05] VITALS (11 sets, daily range): BP systolic 100–127; BP diastolic 38–64
[2021-01-05] MEDS: PANTOPRAZOLE 40 MG IV IVPush SCH ×2 (00:50→11:48)
[2021-01-05] MEDS: METRONIDAZOLE PMX 500MG/100ML 100 ML IV SCH ×3 (03:39→22:10)
[2021-01-05 03:48] LABS: MEAN CORPUSCULAR HEMOGLOBIN 33.4 pg (27.0-34.8); MEAN PLATELET VOLUME 8.4 fL (7.4-10.4); PLATELET COUNT 84 x10^3/uL (130-400); RED BLOOD COUNT 1.99 x10^6/uL (3.82-5.3); RED CELL DISTRIBUTION WIDTH 16.2 % (9.6-15.2)
[2021-01-05 03:56] LABS: INTERNATIONAL NORMALIZED RATIO 2.24 (0.93-1.1); MD YES; PROTHROMBIN TIME 23.6 Seconds (9.6-11.5)
[2021-01-05 03:57] LABS: ALANINE AMINOTRANSFERASE 144 U/L (12-78); ALBUMIN 2.9 g/dL (3.4-5.0); ANION GAP 12 mmol/L (5-15); CALCIUM 7.3 mg/dL (8.5-10.1); CHLORIDE 104 mmol/L (98-107)
[2021-01-05 03:59] LABS: ALKALINE PHOSPHATASE 111 U/L (45-117)
[2021-01-05 04:02] LABS: CREATININE 4.01 mg/dL (0.55-1.02)
[2021-01-05 04:04] LABS: BILIRUBIN,TOTAL 24.9 mg/dL (0.2-1.0); TOTAL PROTEIN 4.2 g/dL (6.4-8.2)
[2021-01-05 04:17] LABS: BAND#(MANUAL) 2.06 x10^3/uL; BANDS%(MANUAL) 12 % (0-7); BASOS#(MANUAL) 0.17 x10^3/uL (0-0.1); BASOS% (MANUAL) 1 % (0-1); EOS#(MANUAL) 0.34 x10^3/uL (0.0-0.4); EOS% (MANUAL) 2 % (1-7); LYMPH#(MANUAL) 0.86 x10^3/uL (1-3.4); LYMPHS% (MANUAL) 5 % (22-44); METAMYELOCYTES# (MANUAL) 0.17 x10^3/uL (0-0); METAMYELOCYTES% (MANUAL) 1 % (0-1); MONOS#(MANUAL) 0.52 x10^3/uL (0.3-2.7); MONOS% (MANUAL) 3 % (2-9); SEG#(MANUAL) 13.07 x10^3/uL (1.8-6.8); SEGS% (MANUAL) 76 % (42-75)
[2021-01-05 04:19] LABS: ANISOCYTOSIS 1+; OVALOCYTES 1+; POLYCHROMASIA 1+
[2021-01-05 04:20] LABS: <PLATELET ESTIMATE> DECREASED; <PLT MORPHOLOGY> NORMAL PLT MORPH; PMNS WITH VACUOLES 1+; TARGET CELLS 1+; TOXIC GRAN 1+
[2021-01-05] MEDS: ALBUMIN HUMAN 25% 100 ML IV SCH ×4 (05:11→23:19)
[2021-01-05 05:50] LABS: POTASSIUM,URINE RANDOM 54 mmol/L
[2021-01-05 06:00] LABS: CHLORIDE,URINE RANDOM < 10 mmol/L; SODIUM,URINE RANDOM < 5 mmol/L
[2021-01-05 06:18] LABS: MICROSCOPIC INDICATED
[2021-01-05] MEDS: OCTREOTIDE 500 MCG in SODIUM CHLORIDE 0.9% 99 ML IV PRN ×2 (06:37→18:08)
[2021-01-05 07:54] LABS: D-DIMER (DIC) 6.81 ug/mlFEU (0.00-0.52); PROTIME 23.2 Seconds (9.6-11.5)
[2021-01-05] MEDS: LACTULOSE 10 GM/15 ML UDC PO SCH ×2 (09:00→20:49)
[2021-01-05] MEDS: PHYTONADIONE 10 MG/ML, 1ML SQ SCH (09:16)
[2021-01-05] MEDS: THIAMINE 100MG TABLET PO SCH (09:16)
[2021-01-05] MEDS: MIDODRINE 5 MG TABLET PO SCH ×3 (09:16→20:50)
[2021-01-05] MEDS: MORPHINE SULFATE 4 MG/ML, 1ML IVPush PRN ×2 (15:40→17:21)
[2021-01-05] MEDS ORDERED: PANTOPRAZOLE 40MG TABLET PO SCH (16:30)
[2021-01-05] MEDS: NOREPINEPHRINE 32 MG in SODIUM CHLORIDE 0.9% 218 ML IV PRN (17:52)
[2021-01-05] MEDS: CEFTRIAXONE PMX 2GM/50ML 50 ML IVPB SCH (21:30)
[2021-01-06] MEDS ORDERED: PANTOPRAZOLE 40 MG IV IVPush SCH (00:30)
[2021-01-06] MEDS: MORPHINE SULFATE 4 MG/ML, 1ML IVPush PRN ×5 (01:16→09:14)
[2021-01-06] MEDS: OCTREOTIDE 500 MCG in SODIUM CHLORIDE 0.9% 99 ML IV PRN (03:14)
[2021-01-06] MEDS: NOREPINEPHRINE 32 MG in SODIUM CHLORIDE 0.9% 218 ML IV PRN (03:52)
[2021-01-06] MEDS: METRONIDAZOLE PMX 500MG/100ML 100 ML IV SCH (04:49)
[2021-01-06] MEDS: ALBUMIN HUMAN 25% 100 ML IV SCH (05:30)
[2021-01-06 05:44] LABS: MEAN CORPUSCULAR HEMOGLOBIN 32.1 pg (27.0-34.8); MEAN CORPUSCULAR HGB CONC 34.9 g/dL (32.4-35.8); MEAN PLATELET VOLUME 8.6 fL (7.4-10.4); PLATELET COUNT 73 x10^3/uL (130-400); RED BLOOD COUNT 1.34 x10^6/uL (3.82-5.3); RED CELL DISTRIBUTION WIDTH 21.3 % (9.6-15.2)
[2021-01-06 05:52] LABS: ALBUMIN 3.2 g/dL (3.4-5.0); CALCIUM 7.5 mg/dL (8.5-10.1); CHLORIDE 107 mmol/L (98-107); INTERNATIONAL NORMALIZED RATIO 2.52 (0.93-1.1); PROTHROMBIN TIME 26.5 Seconds (9.6-11.5)
[2021-01-06 05:53] LABS: MD YES
[2021-01-06 05:59] LABS: ALANINE AMINOTRANSFERASE 108 U/L (12-78); ALKALINE PHOSPHATASE 75 U/L (45-117); ANION GAP 14 mmol/L (5-15)
[2021-01-06 06:05] LABS: D-DIMER (DIC) 9.82 ug/mlFEU (0.00-0.52); PROTIME 26.6 Seconds (9.6-11.5)
[2021-01-06 06:08] LABS: BILIRUBIN,TOTAL 22.3 mg/dL (0.2-1.0); CREATININE 5.37 mg/dL (0.55-1.02)
[2021-01-06 06:09] LABS: TOTAL PROTEIN 4.1 g/dL (6.4-8.2)
[2021-01-06 06:10] LABS: ANISOCYTOSIS 1+; BAND#(MANUAL) 1.83 x10^3/uL; BANDS%(MANUAL) 7 % (0-7); EOS#(MANUAL) 1.83 x10^3/uL (0.0-0.4); EOS% (MANUAL) 7 % (1-7); LYMPH#(MANUAL) 1.83 x10^3/uL (1-3.4); LYMPHS% (MANUAL) 7 % (22-44); METAMYELOCYTES# (MANUAL) 0.78 x10^3/uL (0-0); METAMYELOCYTES% (MANUAL) 3 % (0-1); OVALOCYTES 1+; POLYCHROMASIA 1+; SEG#(MANUAL) 19.84 x10^3/uL (1.8-6.8); SEGS% (MANUAL) 76 % (42-75); SMUDGE CELLS 1+
[2021-01-06 06:11] LABS: <PLATELET ESTIMATE> DECREASED; <PLT MORPHOLOGY> NORMAL PLT MORPH; MICROCYTOSIS 1+
[2021-01-06] MEDS ORDERED: LORazepam 2 MG/ML, 1ML ONE (06:14)
[2021-01-06] MEDS: LORazepam 2 MG/ML, 1ML IVPush PRN ×4 (06:15→09:14)
[2021-01-06] MEDS ORDERED: LORazepam 2 MG/ML, 1ML IV ONE (07:30)
[2021-01-06] MEDS ORDERED: MORPHINE SULFATE 4 MG/ML, 1ML IV ONE (07:30)
[2021-01-06] MEDS: MIDODRINE 5 MG TABLET PO SCH (09:00)
[2021-01-06] MEDS: LACTULOSE 10 GM/15 ML UDC PO SCH (09:00)
[2021-01-06] MEDS: THIAMINE 100MG TABLET PO SCH (09:00)
== END 2021-01-06 09:59 | disposition expired | DRG 720 ==
LOC: ED 19:22 → EDIP 19:24 → CCU 21:56
PROVIDERS: ADMIT Internal Medicine; ATTEND Internal Medicine
PROC: 0T9B30Z Drainage of Bladder with Drainage Device, Percutaneous Approach (ICD-10-PCS; 2021-01-02)
PROC: 02HV33Z Insertion of Infusion Device into Superior Vena Cava, Percutaneous Approach (ICD-10-PCS; principal; 2021-01-03)
PROC: B548ZZA Ultrasonography of Superior Vena Cava, Guidance (ICD-10-PCS; 2021-01-03)
PROC: 5A1D70Z Performance of Urinary Filtration, Intermittent, Less than 6 Hours Per Day (ICD-10-PCS; 2021-01-03)
PROC: 30233K1 Transfusion of Nonautologous Frozen Plasma into Peripheral Vein, Percutaneous Approach (ICD-10-PCS; 2021-01-04)
PROC: 30233N1 Transfusion of Nonautologous Red Blood Cells into Peripheral Vein, Percutaneous Approach (ICD-10-PCS; 2021-01-04)
PROC: 30233R1 Transfusion of Nonautologous Platelets into Peripheral Vein, Percutaneous Approach (ICD-10-PCS; 2021-01-04)
PROC: 5A1D70Z Performance of Urinary Filtration, Intermittent, Less than 6 Hours Per Day (ICD-10-PCS; 2021-01-04)
DX: A41.9 Sepsis, unspecified organism (principal); D62 Acute posthemorrhagic anemia; D65 Disseminated intravascular coagulation [defibrination syndrome]; E43 Unspecified severe protein-calorie malnutrition; Z66 Do not resuscitate; Z51.5 Encounter for palliative care; N17.0 Acute kidney failure with tubular necrosis; K92.2 Gastrointestinal hemorrhage, unspecified; K76.7 Hepatorenal syndrome; K74.60 Unspecified cirrhosis of liver; K80.20 Calculus of gallbladder without cholecystitis without obstruction; K72.90 Hepatic failure, unspecified without coma; J45.909 Unspecified asthma, uncomplicated; I46.9 Cardiac arrest, cause unspecified; G47.33 Obstructive sleep apnea (adult) (pediatric); F10.10 Alcohol abuse, uncomplicated; K70.11 Alcoholic hepatitis with ascites; K76.6 Portal hypertension; E87.1 Hypo-osmolality and hyponatremia; E83.51 Hypocalcemia; R65.21 Severe sepsis with septic shock; R57.8 Other shock; E87.2 Acidosis; B96.20 Unspecified Escherichia coli [E. coli] as the cause of diseases classified elsewhere; E66.01 Morbid (severe) obesity due to excess calories; Z99.2 Dependence on renal dialysis; Z87.440 Personal history of urinary (tract) infections; Z83.3 Family history of diabetes mellitus; Z68.43 Body mass index [BMI] 50.0-59.9, adult
CPT/HCPCS: 36415; 36556; 36600; 71045; 76700; 76770; 80053; 80061; 81001; 82140; 82306; 82310; 82330; 82436; 82570; 82728; 82803; 83036; 83540; 83550; 83605; 83690; 83735; 83880; 83970; 84100; 84133; 84145; 84156; 84300; 84443; 84550; 85014; 85018; 85025; 85045; 85049; 85379; 85384; 85610; 85730; 86850; 86900; 86923; 87040; 87081; 90935; 93005; 96374; 99285; G0378; J0696; J2354; J2543; J3430; J7070; P9047; C1751; C9113; J2060; J2270; J7030; J7050; P9016; P9017; P9035